=== PATIENT | female | born 1985 | race Caucasian/White ===

== ENCOUNTER 2025-06-27 09:49 | Emergency (ER) | payer OTHER ==
[~2025-06-27] VITALS: Ht 149.9 cm; Wt 59.0 kg
[2025-06-27] MEDS ORDERED: Morphine Sulfate 4 MG/1 ML Injection IV ONE ×3 (10:10→12:50)
[2025-06-27 10:17] LABS: BASOPHILS ABSOLUTE AUTO 0.07 K/mm3 (0.00-0.23); BASOPHILS PERCENT AUTO 1 % (0-2); EOSINOPHILS ABSOLUTE AUTO 0.32 K/mm3 (0.00-0.68); EOSINOPHILS PERCENT AUTO 3 % (0-6); Hematocrit 37.0 % (33.0-51.0); Hemoglobin 12.2 g/dL (11.5-16.0); IMMATURE GRAN ABSOLUTE AUTO 0.04 K/mm3 (0.00-0.10); IMMATURE GRAN PERCENT AUTO 0 % (0-1); LYMPHOCYTES ABSOLUTE AUTO 2.50 K/mm3 (0.84-5.20); LYMPHOCYTES PERCENT AUTO 21 % (21-46); MONOCYTES ABSOLUTE AUTO 0.39 K/mm3 (0.16-1.47); MONOCYTES PERCENT AUTO 3 % (4-13); Mean Corpuscular HGB Conc 33.0 g/dL (31.5-36.5); Mean Corpuscular Volume 81 fL (80-100); NEUTROPHILS ABSOLUTE AUTO 8.55 K/mm3 (1.96-9.15); NEUTROPHILS PERCENT AUTO 72 % (41-73); NRBC ABSOLUTE 0.00 K/mm3 (0.00-0.02); NRBC Auto 0.0 /100 WBC (0.0-0.2); Platelet Count 223 K/mm3 (150-400); RDW Coefficient Variation 15.1 % (11.7-14.2); RDW Standard Deviation 43.8 fL (35.1-46.3)
[2025-06-27 10:40] LABS: Alanine Aminotransfer (ALT/SGP 22.0 U/L (12-78); Albumin, Blood 3.6 g/dL (3.4-5.0); Albumin/Globulin Ratio 1.0 (0.8-1.8); Anion Gap 10.0 mmol/L (3-11); Aspartate Aminotrans (AST/SGOT 22.0 U/L (12-37); Bilirubin, Total 0.6 mg/dL (0.1-1.0); Blood Urea Nitrogen 12.0 mg/dL (8-24); CO2, Blood 19.0 mmol/L (21-32); Calcium, Blood 8.7 mg/dL (8.5-10.1); Chloride, Blood 112.0 mmol/L (98-108); Creatinine, Blood 0.96 mg/dL (0.40-1.00); Globulin, Blood 3.5 g/dL (2.2-4.0); Glucose, Blood 124.0 mg/dL (70-99); Potassium, Blood 4.1 mmol/L (3.5-5.5); Sodium, Blood 137.0 mmol/L (136-145); Total Protein, Blood 7.1 g/dL (6.4-8.2)
[2025-06-27] MEDS ORDERED: Esmolol HCL 2500mg/250ml Prema 250 ML IV SCH (11:50)
[2025-06-27] MEDS ORDERED: Labetalol HCL 5 MG/ML 4ML Injection (Single Dose) IV ONE (12:10)
[2025-06-27 12:27] LABS: Prothrombin Time Results 11.7 Sec (9.7-11.5)
[2025-06-27] MEDS ORDERED: NiCARdipine HCL 50 MG in NS 250 ML IV SCH (12:50)
[2025-06-27] MEDS ORDERED: NS 500 ML IV SCH (13:00)
[2025-06-27] MEDS ORDERED: LORazepam 2 MG/ML 1ML Injection IV ONE (13:40)
== END 2025-06-27 14:05 ==
LOC: ER 09:49
PROVIDERS: Emergency Medicine
DX: I71.00 Dissection of unspecified site of aorta (principal); I10 Essential (primary) hypertension; J45.909 Unspecified asthma, uncomplicated; F17.210 Nicotine dependence, cigarettes, uncomplicated
CPT/HCPCS: 71045; 71260; 71275; 74174; 80053; 84484; 85025; 85379; 85610; 85730; 96365-59; 96367-59; 96375-59; 96376-59; 99285-25; J2060; J2270; J7030; J7050; Q9967